=== PATIENT | male | born 1980 | race Caucasian/White ===

== ENCOUNTER 2017-01-11 19:22 | Emergency (ER) | payer SELFPAY ==
[2017-01-11] MEDS ORDERED: NS 0.9% 1000 ML* 1,000 ML IV SCH (20:15)
[2017-01-11 20:32] LABS: Hematocrit 42 % (42-52); Hemoglobin 14.3 g/dl (14.0-18.0); Mean Corpuscular HGB Conc 34 g/dl (31-36); Mean Corpuscular Hemoglobin 31 pg (27-31); Mean Corpuscular Volume 91 fL (80-94); Mean Platelet Volume 10 um3 (7.4-10.4); Red Blood Count 4.56 10^6/ul (4.0-5.4); Red Cell Distribution Width 13 % (10.5-15); White Blood Count 7.9 10^3/ul (3.5-10.8)
[2017-01-11 20:47] LABS: Albumin 4.6 g/dL (3.2-5.2); BUN/Creatinine Ratio 13.9 (8-20); Calcium 9.2 mg/dL (8.6-10.3); EGFR African American 98.9 (>60); EGFR Non-African American 76.9 (>60); Globulin 2.8 g/dL (2-4); Magnesium 2.1 mg/dL (1.9-2.7); Potassium 3.7 mmol/L (3.5-5.0); Total Bilirubin 1.8 mg/dL (0.2-1.0); Total Protein 7.4 g/dL (6.4-8.9)
[2017-01-11] MEDS ORDERED: Iohexol 300* (CONTRAST) 10 ML SDV IV ONE (21:09)
--- NOTE | 2017-01-11 21:22 | RAD ---
INDICATION: Chest pain. COMPARISON: There are no prior studies available for comparison. TECHNIQUE: Dual-energy PA and lateral views of the chest were obtained. FINDINGS: The heart is within normal limits in size. Mediastinal and hilar contours appear within normal limits. The lungs are clear. No pleural effusion or pneumothorax is seen. IMPRESSION: NO EVIDENCE FOR ACTIVE CARDIOPULMONARY DISEASE.
--- NOTE | 2017-01-11 21:38 | RAD ---
INDICATION: Diverticulitis. COMPARISON: There are no prior studies available for comparison. TECHNIQUE: A CT scan of the abdomen and pelvis was performed with intravenous and oral contrast following intravenous injection of 133 ml of Omnipaque 300 nonionic contrast. Contiguous axial sections were obtained from the lung bases through the symphysis pubis. Images were reconstructed in the coronal and sagittal planes. FINDINGS: Images through the lung bases demonstrate mild dependent bilateral lower lobe subsegmental atelectasis. No pleural effusion is seen. The liver is normal in size. There is a small area of decreased attenuation in the left hepatic lobe most consistent with focal fatty infiltration. In addition there is a nodular enhancing lesion in the posterior segment of the right hepatic lobe measuring 2.8 x 2.4 cm in size. The enhancement characteristics are nonspecific although would favor a hemangioma. The spleen is mildly enlarged without focal abnormality. No calcified gallstones are seen. The pancreas appears to be within normal limits. The kidneys and adrenal glands are normal in size. No hydronephrosis is seen. No significant focal renal abnormality is seen. The aorta is normal in caliber and demonstrates homogeneous contrast opacification. No significant enlarged retroperitoneal lymph nodes are seen. The stomach, small and large bowel appear nondistended. The appendix is within normal limits. There are scattered diverticuli within the colon which are [id number] in degree. There is no evidence for diverticulitis or colitis. There is a small periumbilical hernia containing fat. No free intraperitoneal air or fluid is seen. No significant focal osseous abnormality is seen. IMPRESSION: 1. NO EVIDENCE FOR ACUTE FINDING OR CAUSE FOR THE PATIENT'S ABDOMINAL PAIN IS SEEN. 2. HYPERVASCULAR HEPATIC LESION LIKELY A HEMANGIOMA ALTHOUGH NONSPECIFIC. RECOMMEND A FOLLOW-UP OUTPATIENT ULTRASOUND FOR FURTHER EVALUATION. 3. MILD SPLENOMEGALY.
[2017-01-11 22:25] LABS: Urine Bilirubin Negative (Negative); Urine Glucose Negative (Negative); Urine Nitrite Negative (Negative)
[2017-01-11] MEDS ORDERED: Ibuprofen TAB* 600 MG PO ONE (22:37)
[2017-01-11] MEDS ORDERED: Cyclobenzaprine TAB* 10 MG PO ONE (22:37)
[2017-01-11 22:57] VITALS: BP 138/96
--- NOTE | 2017-01-11 23:23 | ED ---
Alvaro Troy SooYoung, scribed for Tip Kendalluel on 01/11/17 at 2013 . HPI Chest Pain - HPI Summary HPI Summary: A 36 y/o M presents to ED with c/o constant L-sided CP onset 0700. Associated sx : L-sided abd pain. Denies: n/v, SOB, diaphoresis, cough. 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 Denies drugs today, marijuana yesterday. No cardiac meds. No FHx cardiac. - History of Current Complaint Chief Complaint: EDChestPainROMI Time Seen by Provider: 01/11/17 20:08 Hx Obtained From: Patient Onset/Duration: Still Present Timing: Constant, Lasting Hours - onset 0700 Current Severity: Moderate Pain Intensity: 7 Pain Scale Used: 0-10 Numeric Chest Pain Location: Left Anterior, Left Lateral Associated Signs and Symptoms: Positive: Abdominal Pain - L-sided. Negative: Shortness of Breath, Diaphoresis, Nausea, Cough, Vomiting - Allergy/Home Medications Allergies/Adverse Reactions: Allergies Allergy/AdvReac Type Severity Reaction Status Date / Time No Known Allergies Allergy Verified 01/11/17 19:24 PMH/Surg Hx/FS Hx/Imm Hx Previously Healthy: No Endocrine/Hematology History: Denies: Hx Diabetes Opthamlomology History: Denies: Hx Legally Blind Infectious Disease History: Denies: Traveled Outside the [place] in Last 30 Days - Family History Known Family History: Positive: Hypertension, Diabetes Negative: Cardiac Disease - Social History Occupation: Unemployed - OTHER Lives: Alone Hx Substance Use: Yes Review of Systems Positive: Chest Pain Negative: Shortness Of Breath, Cough Positive: Abdominal Pain. Negative: Vomiting, Nausea All Other Systems Reviewed And Are Negative: Yes Physical Exam Triage Information Reviewed: Yes Vital Signs On Initial Exam: Initial Vitals Temp Pulse Resp BP Pulse Ox 97.8 F 78 20 122/75 96 01/11/17 19:25 01/11/17 19:25 01/11/17 19:25 01/11/17 19:25 01/11/17 19:25 Vital Signs Reviewed: Yes Appearance: Positive: Well-Appearing, No Pain Distress Skin: Positive: Warm, Skin Color Reflects Adequate Perfusion, Dry Head/Face: Positive: Normal Head/Face Inspection Eyes: Positive: EOMI, ANSHU ENT: Positive: Normal ENT inspection Neck: Positive: Supple, Nontender Respiratory/Lung Sounds: Positive: Clear to Auscultation, Breath Sounds Present Cardiovascular: Positive: RRR, Pulses are Symmetrical in both Upper and Lower Extremities, Other - Tenderness to L-side chest with palpation Abdomen Description: Positive: Soft, Other: - Tenderness to LLQ Bowel Sounds: Positive: Present Musculoskeletal: Positive: Strength/ROM Intact, Other - Tenderness to L-side chest with palpation Neurological: Positive: Normal, Sensory/Motor Intact, Alert, Oriented to Person Place, Time Diagnostics - Vital Signs Vital Signs Temp Pulse Resp BP Pulse Ox 01/11/17 19:25 97.8 F 78 20 122/75 96 - Laboratory Result Diagrams: 01/11/17 20:15 01/11/17 20:15 Lab Statement: Any lab studies that have been ordered have been reviewed, and results considered in the medical decision making process. - Radiology CXR Xray Interpretation: No Acute Changes - IMPRESSION: No evidence for active cardiopulmonary dz. Radiology Interpretation Completed By: Radiologist - CT ABD/PEL CT CT Interpretation: Positive (See Comments) - IMPRESSION: 1. NO EVIDENCE FOR ACUTE FINDING OR CAUSE FOR THE PATIENT'S ABDOMINAL PAIN IS SEEN. 2. HYPERVASCULAR HEPATIC LESION LIKELY A HEMANGIOMA ALTHOUGH NONSPECIFIC. RECOMMEND A FOLLOW-UP OUTPATIENT ULTRASOUND FOR FURTHER EVALUATION. 3. M[address] SPLENOME[address]Y. CT Interpretation Completed By: Radiologist - EKG 1935 Cardiac Rate: NL - 76bpm EKG Rhythm: Sinus Rhythm EKG Interpretation: no acute changes Re-Evaluation - Re-Evaluation 1 Re-Evaluation Time: 22:40 Change: Improved Comment: Discussing results with pt. Pt voiced understanding. Chest Pain Course/Dx - Course Course Of Treatment: A 36 y/o M presents to ED with c/o constant L-sided CP onset 0700. Associated sx: L-sided abd pain. Denies: n/v, SOB, diaphoresis, cough. 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 Denies drugs today, marijuana yesterday. No cardiac meds. No FHx cardiac. Pt given fluids in ED. Bloodwork and lab results are without significant abnormalities. EKG is NSR. UA results show specific gravity is 1.057, trace ketones present. Abd/Pel CT shows "1. NO EVIDENCE FOR ACUTE FINDING OR CAUSE FOR THE PATIENT'S ABDOMINAL PAIN IS SEEN. 2. HYPERVASCULAR HEPATIC LESION LIKELY A HEMANGIOMA ALTHOUGH NONSPECIFIC. RECOMMEND A FOLLOW-UP OUTPATIENT ULTRASOUND FOR FURTHER EVALUATION. 3. MILD SPLENOMEGALY." CXR is negative. Will D/C pt home with Motrin and Flexeril to f/ u with PCP. - Diagnoses Provider Diagnoses: Chest pain, Abdominal pain Discharge - Discharge Plan Condition: Stable Disposition: HOME Prescriptions: Cyclobenzaprine TAB* [Flexeril 10 MG TAB*] 10 mg PO TID PRN #15 tab MDD 3 PRN Reason: Pain Ibuprofen TAB* [Motrin TAB* 600 MG] 600 mg PO Q8H PRN #20 tab PRN Reason: Pain Patient Education Materials: Ibuprofen (By mouth), Chest Pain (ED), Acute Abdominal Pain (ED), Cyclobenzaprine (By mouth) Referrals: No Primary Care Phys,NOPCP [Primary Care Provider] - [facility] [Outside] Additional Instructions: Please establish and follow up with a primary care provider in the next three day. Please return to the ED if you experience new or worsening symptoms. The documentation as recorded by the Alvaro piedra SooYoung accurately reflects the service I personally performed and the decisions made by , Willian Kendall.
== END 2017-01-11 23:00 | disposition home or self-care (01) ==
LOC: ED 19:22
DX: R10.9 Unspecified abdominal pain (principal); R07.9 Chest pain, unspecified; Z86.79 Personal history of other diseases of the circulatory system
CPT/HCPCS: 36415; 71020; 74177; 80053; 81003; 82550; 83605; 83690; 83735; 83880; 84484; 85025; 85610; 85730; 86703; 93005; 99284; A9270-GY; Q9967

== ENCOUNTER 2017-08-12 16:29 | Emergency (ER) | payer SELFPAY ==
[2017-08-12] MEDS ORDERED: Ketorolac INJ* 30 MG/ML 1 ML VIAL IM ONE (16:41)
[2017-08-12] MEDS ORDERED: Lidocaine 1%* 5 ML VIAL INJ ONE (16:41)
[2017-08-12] MEDS ORDERED: oxyCODONE/Acetamin 5/325 MG* TAB PO ONE (16:41)
--- NOTE | 2017-08-12 16:46 | ED ---
Upper Extremity Pain - HPI Summary HPI Summary: 37-year-old male presents with left wrist deformity today. He states he is tripped and fell and landed on his outstretched hand. He states he feel because he slipped in mud. He denies any numbness. he denies any previous injury to the area. He is right-handed. He states he did hit his head. He denies any loss conscious. He denies any nausea vomiting. There is a deformity to his left wrist. He pain is 10 out of 10. He has history of neurogenic cardio syncope. 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 - History of Current Complaint Chief Complaint: EDExtremityUpper Stated Complaint: LT WRIST INJURY Time Seen by Provider: 08/12/17 16:39 - Allergies/Home Medications Allergies/Adverse Reactions: Allergies Allergy/AdvReac Type Severity Reaction Status Date / Time No Known Allergies Allergy Verified 08/12/17 16:34 PMH/Surg Hx/FS Hx/Imm Hx Endocrine/Hematology History: Denies: Hx Diabetes Cardiovascular History: Reports: Hx Congestive Heart Failure - HX OF Denies: Hx Hypertension History: Denies: Hx Renal Disease Sensory History: Denies: Hx Legally Blind Opthamlomology History: Denies: Hx Legally Blind Infectious Disease History: No Infectious Disease History: Denies: Traveled Outside the [place] in Last 30 Days - Family History Known Family History: Positive: Hypertension, Diabetes Negative: Cardiac Disease - Social History Alcohol Use: Weekly Hx Substance Use: Yes Substance Use Type: Reports: Marijuana Smoking Status (MU): Former Smoker Review of Systems Negative: Fever Negative: Chest Pain Negative: Shortness Of Breath Positive: Myalgia - left wrist pain Positive: Headache All Other Systems Reviewed And Are Negative: Yes Physical Exam Triage Information Reviewed: Yes Vital Signs On Initial Exam: Initial Vitals Temp Pulse Resp BP Pulse Ox 98 F 62 16 128/66 100 08/12/17 16:30 08/12/17 16:30 08/12/17 16:30 08/12/17 16:30 08/12/17 16:30 Vital Signs Reviewed: Yes Appearance: Positive: Well-Appearing Skin: Positive: Warm, Dry Head/Face: Positive: Normal Head/Face Inspection, Other - no step off, racoon eyes, marcelino sign Eyes: Positive: Normal, EOMI, ANSHU, Conjunctiva Clear ENT: Positive: Normal ENT inspection, Pharynx normal, TMs normal Respiratory/Lung Sounds: Positive: Clear to Auscultation, Breath Sounds Present Cardiovascular: Positive: Normal, RRR Musculoskeletal: Positive: Limited @ - left wrist, Other - deformity to left wrist, good pulses, capillary refill<2 secs, sensation grossly intact Neurological: Positive: Sensory/Motor Intact, Alert, Oriented to Person Place, Time, CN Intact II-III Psychiatric: Positive: Normal Procedures - Splinting Location: left wrist Hand-Made Type: orthoglass Splint: sugar-tong Pre-Proc Neuro Vasc Exam: normal Post-Proc Neuro Vasc Exam: normal - Joint Reduction Joint Reduction Site: wrist (R) Conscious Sedation: No - hematoma block Reduction Attempts: 1 - finger traps Pre-Procedure NV Exam: Yes Post Joint Reduction Film: joint not reduced Diagnostics - Vital Signs Vital Signs Temp Pulse Resp BP Pulse Ox 08/12/17 16:30 98 F 62 16 128/66 100 - Laboratory Lab Statement: Any lab studies that have been ordered have been reviewed, and results considered in the medical decision making process. - Radiology wrist Xray Interpretation: Positive (See Comments) - IMPRESSION: INTRA-ARTICULAR DISTAL RADIAL FRACTURE. DORSAL DISLOCATION OF THE CARPUS Radiology Interpretation Completed By: Radiologist Course/Dx - Course Course Of Treatment: 37-year-old male presents with left wrist deformity today. He states he is tripped and fell and landed on his outstretched hand. He states he feel because he slipped in mud. He denies any numbness. he denies any previous injury to the area. He is right-handed. He states he did hit his head. He denies any loss conscious. He denies any nausea vomiting. There is a deformity to his left wrist. He pain is 10 out of 10. He has history of neurogenic cardio syncope. 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 on exam has deformity to left wrist. Neurovascularly intact. X-ray shows carpal and radial fracture dislocation. Spoke with Dr. lopez said place in finger traps but will not move as much as like. Will have follow-up with ortho tomorrow. Place in finger traps for 20 mins and attempted manual reduction and splinted in sugar tong. Neurovascular intact afterwards. patient states that feels better but no change on xray. will have follow up with ortho tomorrow. Patient understands and agrees with plan. - Diagnoses Differential Diagnosis/HQI/PQRI: Positive: Fracture (Closed), Strain, Sprain Provider Diagnoses: Left radial fracture Discharge - Discharge Plan Condition: Good Disposition: HOME Prescriptions: oxyCODONE/Acetamin 5/325 MG* [Percocet 5/325 TAB*] 1 tab PO Q6H PRN #20 tab MDD 4 PRN Reason: Pain Patient Education Materials: Wrist Fracture in Adults (ED) Referrals: No Primary Care Phys,NOPCP [Primary Care Provider] - Bozena Lopez MD [Medical Doctor] - Additional Instructions: Keep elbow in sling as needed Keep splint on area and keep dry Call ortho office tomorrow to set up appointment for follow up Use ibuprofen for pain every 6 hours and use narcotic for breakthrough pain Ice, elevate Return to ED if develop numbness or tingling or any new or worsening symptoms
--- NOTE | 2017-08-12 17:07 | RAD ---
INDICATION: Medic left fracture COMPARISON: None TECHNIQUE: AP and crosstable lateral imaging was obtained. FINDINGS: There is a comminuted intra-articular fracture distal radius. There is dorsal displacement of multiple distal radial fracture fragments. The entire carpus is dislocated dorsally. There is soft tissue swelling with deformity. IMPRESSION: INTRA-ARTICULAR DISTAL RADIAL FRACTURE. DORSAL DISLOCATION OF THE CARPUS
--- NOTE | 2017-08-12 17:10 | RAD ---
INDICATION: Traumatic fracture left wrist COMPARISON: None TECHNIQUE: AP and lateral views were obtained. FINDINGS: There is a comminuted, displaced, intra-articular fracture distal radius described in a separate report. There are no other fractures of the wrist/forearm. There is soft tissue swelling about the wrist. IMPRESSION: DISTAL RADIAL FRACTURE. SEE SEPARATE WRIST REPORT.
[2017-08-12] MEDS ORDERED: Morphine INJ* 4 MG/ML 1 ML SYRINGE (NEW SYRINGE VERSION) IV ONE (17:38)
[2017-08-12 19:08] VITALS: BP 120/82
--- NOTE | 2017-08-12 19:15 | RAD ---
INDICATION: Postreduction traumatic fracture left wrist COMPARISON: Prereduction films same date TECHNIQUE: AP, lateral, and oblique views were obtained. FINDINGS: There is persistent dorsal dislocation of the carpal bones at the radiocarpal joint with the previously described comminuted and displaced intra-articular distal radial fracture. There is persistent soft tissue deformity. IMPRESSION: There is no interval change in the dorsal displacement of the carpus or multiple fracture fragments from the intra-articular distal radial fracture.
== END 2017-08-12 19:15 | disposition home or self-care (01) ==
LOC: ED 16:29
DX: S52.572A Other intraarticular fracture of lower end of left radius, initial encounter for closed fracture (principal); W01.0XXA Fall on same level from slipping, tripping and stumbling without subsequent striking against object, initial encounter; Y93.9 Activity, unspecified; Y92.9 Unspecified place or not applicable; I50.9 Heart failure, unspecified; Z87.891 Personal history of nicotine dependence
CPT/HCPCS: 96372; 96374; 99282; A9270-GY; J1885; J2270

== ENCOUNTER 2017-08-15 13:26 | Day surgery (SDC) | payer BC ==
[~2017-08-15 13:26] MED LIST: Buffered Lidocaine 0.9% SYRIN* 5 ML/SYR SYRINGE INTRADERM ONE
[2017-08-15] MEDS ORDERED: ceFAZolin 2 GM PREMIX (*) 2 GM/50 ML BAG IVPB ONE (13:40)
[2017-08-15] MEDS ORDERED: Bupivacaine 0.25% SDV* 30 ML ONE ×2 (14:53→18:46)
[2017-08-15] MEDS ORDERED: fentaNYL* 50 MCG/ML 2 ML VIAL (100 MCG VIAL) ONE ×3 (15:15→17:09)
[2017-08-15] MEDS ORDERED: Lidocaine 2% PF * 5 ML VIAL ONE (15:15)
[2017-08-15] MEDS ORDERED: Propofol* 10 MG/ML 20 ML BTL IV PUSH ONE ×2 (15:15→19:02)
[2017-08-15] MEDS ORDERED: Dexamethasone IV* 4 MG/ML 1 ML (4 MG) ONE (16:14)
[2017-08-15] MEDS ORDERED: Esmolol* 10 MG/ML 10 ML (100 mg) ONE (18:02)
[2017-08-15] MEDS ORDERED: Ketorolac INJ* 30 MG/ML 1 ML VIAL ONE (18:02)
[2017-08-15] MEDS ORDERED: fentaNYL* 50 MCG/ML 2 ML VIAL (100 MCG VIAL) IV PRN (18:17)
[2017-08-15] MEDS ORDERED: DiMENhydriNATE IV* 50 MG/ML VIAL IV PUSH PRN (18:17)
[2017-08-15] MEDS ORDERED: Naloxone* 0.4 MG/ML 1 ML VIAL IV PRN (18:17)
[2017-08-15] MEDS ORDERED: DiMENhydriNATE IV* 50 MG/ML VIAL ONE (19:38)
[2017-08-15] MEDS ORDERED: traMADol TAB* 50 MG ONE (20:38)
[2017-08-15 20:41] VITALS: BP 135/80
--- NOTE | 2017-08-16 15:57 | RAD ---
INDICATION: ORIF LEFT wrist COMPARISON: August 14, 2017 CT and August 12, 2017 radiographs. TECHNIQUE: 41 seconds fluoroscopy. FINDINGS: Spot images document a volar cortical plate and fixation screws traversing the severely comminuted distal radial intra-articular fracture with marked improvement in alignment. IMPRESSION: Procedural fluoroscopy. CPT II Codes: 6045F
--- NOTE | 2017-08-18 06:20 | OP ---
OPERATIVE REPORT: DATE OF OPERATION: 08/15/17 DATE OF : 78 SURGEON: Escobar Hobbs MD B[employer] FIDDLE PLAYER: RADHA Del Castillo followed by RADHA Alvarado An surgical assistant certified was needed for the entirety of the procedure to aid in positioning of the arm and retraction. ANESTHESIOLOGIST: Dr. Hylton. ANESTHESIA: General. PRE-OP DIAGNOSIS: 1. Left very distal and multifragmentary intra-articular distal radius fracture. 2. Left carpal tunnel syndrome. POST-OP DIAGNOSIS: 1. Left very distal and multifragmentary intra-articular distal radius fracture. 2. Left carpal tunnel syndrome. OPERATIVE PROCEDURE: 1. Open reduction internal fixation, left complex intra-articular multifragmentary distal radius fracture. 2. Left carpal tunnel release Please note that fixation of the fracture required both a volar and dorsal approach as well as a Synthes volar rim distal radius plate with initial fixation volarly after reduction of the volar fragments, which were then switched out for a definitive fixation after the dorsal approaching and reduction of the dorsal fragments. All these made this much more complicated than atypical intra-articular distal radius fracture. INDICATIONS: Mackenzie is a young man who had a fall while hiking. He had a very distal highly comminuted intra-articular radius fracture. The articular surface on CT scan was noted to be in many fragments probably 8 or more fragments. The fracture was extremely distal. Many of the articular fragments were extruded and there was no secondary congruent. I had spoken with Mackenzie about the many complicated features associated with this fracture including all of the aforementioned and the fact that the fracture was extremely distal and would require some form of distal plate versus a spanning dorsal distal radius plate. We are unable to get the reduction. He understood all of this. He wanted to proceed with surgery. He understands that the lunate facet had extremely comminuted, impacted and has multiple extruded fragments. There is a fair chance of posttraumatic arthritis developing in the joint. I did tell him that his best chance for limiting the chance of a posttraumatic arthritis development was to reasonably line up the articular surface. I told him he certainly would probably lose motion, but if we could get him a relatively painless joint with some loss of motion, I could note it would be a very excellent outcome. He has severe numbness and tingling in the radial digits and I recommended we release the carpal tunnel as well. ESTIMATED BLOOD LOSS: 30 mL. COMPLICATIONS: On the approach to the dorsum of the wrist, a partial laceration occurred in the EDC tendon to the middle finger. This was treated with one 4 strand 3-0 Ethibond core suture to stabilize and fortify the partial tendon laceration. FINDINGS: As expected. There is a large central fragment, which was rotated to 90 degrees, extruded volarly. We tried to reduce on the volar approach. The volar- ulnar lunate facet fragment was rotated to 90 degrees and sitting distal anterior to the lunate. Dorsally, there was a large extruded piece of the lunate facet that was spit out dorsally, requiring reduction. DESCRIPTION OF PROCEDURE: Mackenzie was seen in the preoperative holding area. The correct site, side, and procedure were identified. We came back to the operating room and the anesthesia was induced. The arm was prepped and draped in the usual fashion. A time-out was performed. I exsanguinated the arm with the Esmarch and the tourniquet was inflated to 250 mmHg. I then made a 2-3 cm incision in the standard location for an open carpal tunnel release. The fascia and subcutaneous tissue were incised and retracted. The transverse carpal ligament was released just off the radial aspect of the hook of the hamate. Proximally, the fascia and subcutaneous tissue were release and a Ted retractor placed and the remainder of the transverse carpal ligament and distal antebrachial fascia were released. The wound was irrigated and the skin closed with 4-0 nylon suture. I made a longitudinal incision over the distal FCR tendon sheath. Dissection was carried down and the FCR tendon sheath was opened. The tendon was retracted ulnarly. Subsheath was released. The pronator quadratus was released off the radial margin of the radius. This was T'd back transversely, preserving what was left at the volar extrinsic capsular ligaments. The brachioradialis was released off the radial aspect. It did attach mostly proximal to the fracture, but that was some extending down to the rather larger radial styloid fragment. The fracture hematoma was then irrigated out and cleaned up with the curette and the suction. There was the volar ulnar lunate facet piece was initially missing and the central piece of lunate facet which had rotated to 90 degrees, the cancellous surface was adjacent to the styloid fragment. I derotated that and then reduced back into its more central location. I then based of my preoperative CT went distal and fell on to the volar ulnar lunate facet fragment rotated to 90 degrees in adjacent to the volar aspect of the lunate. The ligaments on this piece were retained. It was derotated and reduced with the dental pick and then pinned into place with two 1.0 mm K-wires of the Synthes variable angle distal radius facet. Once I add this piece secured into place, I was able to bring my radial styloid piece back into reduction and then that was pinned into place with a traversing 1.9 mm radial styloid pin exiting out the ulnar radial shaft. In this way, I reduced the anterior portion of the joint to the point that I was satisfied with the reduction. I went ahead and brought in my Synthes variable angle volar rim plate. The 5 hole distal plate was selected. This was brought into place and pinned into place with a couple of pins proximally. During all this reduction, I had the arm in 10 pounds of traction using the Arthrex hand nunez. I let the traction off and brought in the mini C-arm to check the reduction of the volar aspect as well as the plate position. Things were looking good. I placed 1 screw in the oblong hole proximally. This was a 2.4 mm screw. I then placed my distal row of locking screws with relatively short locking screws all about 14 to 16 mm only traversing the more volar fragments. Once I had these in place, I then packed some wet gauze into the wound and then I put the wrist over and made a longitudinal incision over the dorsum of the wrist. Dissection was carried down dorsally and full thickness flaps were raised off the extensor retinaculum. Since the retinaculum was opened over the third dorsal compartment, the EPL tendon was mobilized and retracted radially. I then incised the septum between the third and fourth dorsal compartment, so as between the third dorsal compartment and second dorsal compartment. The fourth dorsal compartment tendons were taken ulnarly and the second and third dorsal compartment tendons were taken radially. As I T'd back the extensor retinaculum in preparation to retract it, I did partially lacerate the EDC tendon to the middle finger. It was about 50% lacerated, I thought it was a bit much poor to just leave it and so I took 3-0 Ethibond and I quickly placed one 4 strand cruciate suture in the tendon to stabilize it and prevent rupture at a later date. Once this was complete, I noted that there was some thin wafers of dorsal cortex or some fracture lines going through them. I utilized one of these fracture lines and split the periosteum over that dorsal wafer of bone. Half of it was retracted radially and the other half was retracted ulnarly. The capsule was T'd back and the dorsal wrist articular surface was exposed. The dorsal ulnar facet was extremely impacted, I took an osteotome and came proximal to the subchondral bone and disimpacted and elevated backup. I used some of the bony cancellous fragments dorsally to pack into that surface and hit the dorsal lunate facet in the disimpacted position. There was a central free fragment that was pinned out dorsally. Articular fragment that was pinned out dorsally from the lunate facet. This was reduced and pinned into place. The radial side of the articular surface was looking pretty good after reduction of the radial styloid piece. Once I had rebuilt the lunate facet to the extend possible, I went ahead and came volar and switched out my locking screws one-by-one for 22 mm screws, one ulnarly and then the screw length tapered off as we came radially. The joint surface was directly visualized during screw placement and none of the screws penetrated the joint surface. The screws done excellent job of rocking up and securing the multiple articular fragments. There were couple of spots where there was still little bit of missing articular surface to the lunate facet, but most of it had been rebuilt. There were no additional articular fragments that I could identify really to work with. Clearly over 90% of the lunate facet had been rebuilt very nicely. At this point, the fixation looked good. I brought in the C-arm and check the fluoroscopic imaging. The reduction looked good both directly and on the fluoroscopy. I at this point irrigated out the dorsal wound. The capsule was closed with some 4-0 Ethibond suture. The extensor retinaculum was closed with 4-0 Ethibond suture. The EPL tendon was left transposed. The subcutaneous tissue was reapproximated with couple of Vicryl sutures and the skin was closed with 3-0 Monocryl subcuticular suture. I then flipped over the wrist and I reapproximated the pronator quadratus with 3 -0 Vicryl suture. The wound was at this point pretty swollen. I had let down the tourniquet as we were over 2-1/2 hours and it was starting to swell up. I used some 2-0 Vicryl suture to reapproximate the subcutaneous tissue. The skin was closed with 3-0 Monocryl suture. Steri-Strips were very gently applied without pulled underneath the skin or around the skin. The wounds were infiltrated with 40 cc of Marcaine. The wounds were dressed with Xeroform, 4x4s , sterile Webril, and a wrist splint was applied. The patient was then woken up and taken to the recovery room in stable condition. [id number]/[facility] #: [id number] MTDD
== END 2017-08-15 20:48 | disposition home or self-care (01) ==
LOC: OREAST 13:26
PROVIDERS: ATTEND Orthopaedic Surgery Hand Surgery
DX: S52.572A Other intraarticular fracture of lower end of left radius, initial encounter for closed fracture (principal); W19.XXXA Unspecified fall, initial encounter; G56.02 Carpal tunnel syndrome, left upper limb
CPT/HCPCS: 76000; 88304; A9270-GY; C1713; C1776; J0690; J1100; J1240; J1885; J2704; J3010

== ENCOUNTER 2018-02-20 11:28 | Day surgery (SDC) | payer BC ==
[2018-02-20] MEDS ORDERED: ceFAZolin 2 GM in NS PREMIX(*) 2 GM/100 ML BAG IVPB ONE (11:41)
[2018-02-20] MEDS ORDERED: ROPIVACAINE 5 MG/ML 30 ML BTL (0.5%) ONE (13:55)
[2018-02-20] MEDS ORDERED: Propofol* 10 MG/ML 20 ML BTL IV PUSH ONE (14:06)
[2018-02-20] MEDS ORDERED: Lidocaine 2% PF * 5 ML VIAL ONE (14:06)
[2018-02-20] MEDS ORDERED: fentaNYL* 50 MCG/ML 2 ML VIAL (100 MCG VIAL) ONE (14:07)
[2018-02-20] MEDS ORDERED: Midazolam* 1 MG/ML 2 ML VIAL (2 MG) ONE (14:07)
[2018-02-20] MEDS ORDERED: fentaNYL* 50 MCG/ML 2 ML VIAL (100 MCG VIAL) IV PRN (14:52)
[2018-02-20] MEDS ORDERED: Naloxone* 0.4 MG/ML 1 ML VIAL IV PRN (14:52)
[2018-02-20] MEDS ORDERED: Ketorolac INJ* 30 MG/ML 1 ML VIAL ONE (14:53)
[2018-02-20] MEDS ORDERED: Ondansetron INJ* 2 MG/ML VIAL ONE (14:53)
[2018-02-20] MEDS ORDERED: Dexamethasone IV* 4 MG/ML 1 ML (4 MG) ONE (14:53)
[2018-02-20 16:02] VITALS: BP 128/72
--- NOTE | 2018-02-21 05:40 | OP ---
DATE OF OPERATION: 02/20/18 - [facility] DATE OF : 78 SURGEON: Escobar Hobbs MD CHARTER PILOT: RADHA Del Castillo ANESTHESIOLOGIST: Hui Joseph DO ANESTHESIA: General. PRE-OP DIAGNOSIS: Retained left distal radius plate and screws. POST-OP DIAGNOSIS: Retained left distal radius plate and screws. OPERATIVE PROCEDURE: Removal of left distal radius plate and screws. INDICATIONS: Mackenzie had a highly comminuted distal radius fracture several months ago. The bone has now healed in excellent alignment. The plate that was used to fix the fracture was placed was very distal over the watershed line and therefore we came back to the operating room today to remove the plate so as to minimize the risk of a flexor tendon rupture. He understands the risks and benefits including the risk of refracture, risk of stiffness, risk of neurovascular injury. He wished to proceed. FINDINGS: See above and below. ESTIMATED BLOOD LOSS: 2 mL. COMPLICATIONS: None. DESCRIPTION OF PROCEDURE: Mackenzie was seen in the preoperative holding area. We came back to the operating room, the arm was prepped and draped in the usual fashion. A time-out was performed. The arm was exsanguinated and the tourniquet was inflated to 250 mmHg. I reopened his prior volar incision part of the way. Dissection was carried down. The FCR tendon was retracted ulnarly. The subsheath was opened. The pronator quadratus was released off its radial margin. The soft tissue over the plate was freed up. The screws were then removed, first the proximal screws and then the distal screws. Once all the screws were removed, the plate was removed uneventfully. The rongeur was used to smooth off any rough edges. The pronator was reapproximated. The skin was closed with 3-0 Monocryl suture and Steri-Strips. Ropivacaine was infiltrated into the operative area. Soft dressings were placed. He was then woken up and taken to the recovery room in stable condition. [id number]/[facility] #: [id number] DRAKE
--- NOTE | 2018-02-21 18:02 | RAD ---
INDICATION: Intraoperative fluoroscopy LEFT wrist. Technique: 12 seconds of?fluoroscopy?was provided?for the physician proceduralist. REPORT: Spot images document removal of previous internal fixation hardware at the radius compared with the February 04, 2018 radiographs. IMPRESSION: Procedural control films. CPT II Codes: G9500
== END 2018-02-20 16:06 | disposition home or self-care (01) ==
LOC: OREAST 11:28
PROVIDERS: ATTEND Orthopaedic Surgery Hand Surgery
DX: S52.572D Other intraarticular fracture of lower end of left radius, subsequent encounter for closed fracture with routine healing (principal); X58.XXXD Exposure to other specified factors, subsequent encounter; Y92.9 Unspecified place or not applicable; Z87.891 Personal history of nicotine dependence
CPT/HCPCS: 76000; 88300; J0690; J1100; J1885; J2250; J2405; J2704; J2795; J3010